=== PATIENT | male | born 1950 | race Caucasian/White ===

== ENCOUNTER 2020-08-22 09:05 | Emergency (ER) | payer OTHER, MEDICARE ==
[~2020-08-22] VITALS: Ht 180.3 cm; Wt 113.4 kg
[2020-08-22 10:27] LABS: URINE BILIRUBIN NEGATIVE (Negative); URINE BLOOD NEGATIVE (Negative); URINE CLARITY CLEAR; URINE COLOR YELLOW; URINE GLUCOSE-RANDOM* NEGATIVE (Negative); URINE KETONES NEGATIVE (Negative); URINE LEUKOCYTES-REFLEX NEGATIVE (Negative); URINE NITRITE-REFLEX NEGATIVE (Negative); URINE PROTEIN (DIPSTICK) NEGATIVE (Negative); URINE SPECIFIC GRAVITY 1.015 (1.005-1.035); URINE UROBILINOGEN 0.2 E.U./dl (0.2-1.0)
[2020-08-22 11:12] LABS: HEMATOCRIT 44.5 % (42.0-52.0); HEMOGLOBIN 15.1 gm/dL (14.0-18.0); MCH 32.7 pg (26.0-34.0); MCV 96.3 fL (80.0-100.0); RBC 4.62 mil/uL (4.50-6.00); RDW 13.4 % (10.5-14.5); WBC 5.2 thou/uL (4.0-11.0)
[2020-08-22 11:20] LABS: ANION GAP 6 mmol/L (7-16); BUN 22 mg/dL (7-18); CALCIUM 8.4 mg/dL (8.5-10.1); CHLORIDE 106 mmol/L (98-107); CO2 28 mmol/L (21-32); GLUCOSE 99 mg/dL (74-106); POTASSIUM 4.4 mmol/L (3.5-5.1); SODIUM 140 mmol/L (136-145)
--- NOTE | 2020-08-22 11:23 | EKG ---
[facility] [place] [address] ELECTROCARDIOGRAM REPORT Name: XU DEAL Room #: PRE M.R.#: [id number] Admission: Attend Phys: Discharge: Date of : 54 Report #: [id number] THIS REPORT FOR: cc: Jerome Schmitz MD [facility] ~ THIS REPORT FOR: //name// [facility] ED Test Date: 2020-08-22 Test Time: 10:09:44 Pat Name: XU DEAL Department: Room: Gender: M Automobile Technician: : 1950 Requested By: Calin Hall Order Number: [id number] : Jerome Schmitz Measurements Intervals [place] Rate: 67 P: 4 IN: 212 QRS: -30 QRSD: 135 T: 39 QT: 399 QTc: 422 Interpretive Statements Sinus rhythm Borderline prolonged IN interval IVCD, consider atypical RBBB No previous ECG available for comparison Electronically Signed On 08-22-2020 11:22:55 CDT by Jerome Schmitz [email or web address] <ELECTRONICALLY SIGNED> By: Jerome Schmitz MD, FACC 08/22/20 1122 1009 1009 Jerome Schmitz MD, FACC /EPI
[2020-08-22 11:31] LABS: ALBUMIN 3.9 g/dL (3.4-5.0); DIRECT BILIRUBIN 0.1 mg/dL (<0.1-0.2); SGOT 23 U/L (15-37); SGPT 32 U/L (30-65); TOTAL BILIRUBIN 0.6 mg/dL (0.2-1.0); TOTAL PROTEIN 7.1 g/dL (6.4-8.2); TROPONIN-I <0.06 ng/mL (<0.06)
[2020-08-22 12:01] VITALS: BP 159/85
== END 2020-08-22 12:01 | disposition home or self-care (01) ==
LOC: ER 09:05
PROVIDERS: Emergency Medicine
DX: R41.0 Disorientation, unspecified (principal); I10 Essential (primary) hypertension

== ENCOUNTER → 2020-09-09 | Outpatient (CLI) | payer OTHER, MEDICARE | LOC: SJCVCIMAG 10:49 | PROVIDERS: ATTEND Internal Medicine Cardiovascular Disease | DX: I77.810 Thoracic aortic ectasia (principal); I49.1 Atrial premature depolarization; I10 Essential (primary) hypertension; E78.5 Hyperlipidemia, unspecified; Z86.73 Personal history of transient ischemic attack (TIA), and cerebral infarction without residual deficits ==